=== PATIENT | male | born 1970 | race Hispanic/Latino ===

== ENCOUNTER → 2024-08-07 | Outpatient (CLI) | payer OTHER ==
[~2024-08-07] MED LIST: GADOTERATE MEGLUMINE 10 MMOL/20 ML VIAL IV ONE
== END | disposition home or self-care (01) ==
LOC: RAH 09:00
PROVIDERS: ATTEND Family Medicine
DX: I69.351 Hemiplegia and hemiparesis following cerebral infarction affecting right dominant side (principal)
CPT/HCPCS: 70553; 70544; A9575